=== PATIENT | male | born 1955 | race Caucasian/White ===

== ENCOUNTER 2019-01-17 11:05 | Emergency (ER) | payer BC ==
[2019-01-17] MEDS ORDERED: blood pressure med (11:15)
[2019-01-17] MEDS ORDERED: fentaNYL CITR 100 MCG/2 ML AMP IVP ONE (11:35)
[2019-01-17] MEDS ORDERED: PROPOFOL(*)1000 MG/100 ML VIAL 100 ML IV PRN (11:55)
[2019-01-17] MEDS ORDERED: KETAMINE HCL-NS 50 MG/5 ML SYR IVP ONE (11:55)
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
[2019-01-17] MEDS ORDERED: IBUPROFEN 600 MG TAB PO ONE (13:20)
--- NOTE | 2019-01-17 13:29 | RADIOLOGY IMAGING REPORT ---
FACILITY: PATIENT NAME: Joe Ortiz : 1955 MR: [id number] V: [id number] EXAM DATE: [id number] ORDERING PHYSICIAN: AMANDA GARCIA TECHNOLOGIST: [place] [facility] [place] Patient: Joe Ortiz : 1955 Visit/Account:[id number] Date of Sevice: 01/17/2019 SHOULDER MIN 2 VIEWS LEFT Indication: Shoulder pain. Reduction. Comparison: Unavailable Findings: 2 views of the left shoulder are submitted. On this two-view exam, the glenohumeral joint appears appropriately aligned. No humeral head fracture is seen. There are moderate changes of acromioclavicular joint osteoarthritis. On the internal rotat ion view, there is an ill-defined density which abuts the lateral margin of the body of the scapula j ust beyond the neck of the glenoid. This is indeterminant. This could be related to enthesopathic trisha nges related to muscle origins/insertion in this region. A small avulsion type fracture here cannot b e excluded. Comparison with any older studies would be useful. IMPRESSION: 1. Normal alignment at the left shoulder on this two-view study. 2. Moderate acromioclavicular joint osteoarthritis. 3. Indeterminate density along the margin of the scapula just inferior to the scapular neck. See full discussion above. Report Dictated By: Mikey Devine at 01/17/2019 1:16 PM Report E-Signed By: Mikey Devine at 01/17/2019 1:21 PM [id number]
[2019-01-17 13:30] VITALS: BP 147/93
== END 2019-01-17 14:00 | disposition home or self-care (01) ==
LOC: ER 11:09
DX: S43.085A Other dislocation of left shoulder joint, initial encounter (principal)
CPT/HCPCS: 23650; 73030; 99285; A4565; J2704; J3010; J3490